=== PATIENT | male | born 1965 | race Caucasian/White ===

== ENCOUNTER 2016-10-24 21:07 | Emergency (ER) | payer OTHER ==
[2016-10-24 21:32] LABS: HEMOGLOBIN 14.7 gm/dl (14.0-17.5); RED BLOOD COUNT 4.54 M/UL (4.20-5.50); WHITE BLOOD COUNT 8.6 K/UL (4.5-11.0)
[2016-10-24 21:52] LABS: BUN/CREATININE RATIO 12 (0-10)
== END 2016-10-24 22:56 | disposition home or self-care (01) ==
LOC: ER1 21:07
PROVIDERS: Specialist/Technologist Athletic Trainer
DX: J44.0 Chronic obstructive pulmonary disease with (acute) lower respiratory infection (principal); J20.9 Acute bronchitis, unspecified; J44.1 Chronic obstructive pulmonary disease with (acute) exacerbation; F17.200 Nicotine dependence, unspecified, uncomplicated
CPT/HCPCS: 36415; 36600; 71010; 80053; 80307; 82803; 85025; 85610; 85730; 93005; 94640; 94664; 96374; 99285; G0480; J2930

== ENCOUNTER → 2016-11-20 | Outpatient (CLI) | payer OTHER ==
[2016-11-20 10:52] LABS: HEMOGLOBIN 15.3 gm/dl (14.0-17.5); RED BLOOD COUNT 4.79 M/UL (4.20-5.50)
[2016-11-20 11:14] LABS: BUN/CREATININE RATIO 14 (0-10)
== END ==
LOC: US 09:09
PROVIDERS: Nurse Practitioner
DX: B18.2 Chronic viral hepatitis C (principal); R93.2 Abnormal findings on diagnostic imaging of liver and biliary tract
CPT/HCPCS: 36415; 76700; 80053; 80074; 80307; 82103; 82105; 82172; 82247; 82390; 82728; 82977; 83010; 83540; 83550; 83883; 84460; 85027; 85610; 86039; 86235; 86255; 87390; 87521; G0480

== ENCOUNTER → 2016-12-18 | Outpatient (CLI) | payer OTHER | LOC: SLEEP 21:30 | DX: G47.33 Obstructive sleep apnea (adult) (pediatric) (principal); J41.0 Simple chronic bronchitis | CPT/HCPCS: 95810 ==

== ENCOUNTER 2021-08-10 18:10 | Emergency (ER) | payer OTHER ==
[~2021-08-10 18:10] MED LIST: IBUPROFEN600 MG PO; TAMIFLU75 MG PO
[2021-08-10 20:09] LABS: HEMOGLOBIN 14.3 gm/dl (14.0-17.5); RED BLOOD COUNT 4.43 M/UL (4.20-5.50); WHITE BLOOD COUNT 7.1 K/UL (4.5-11.0)
[2021-08-10 20:27] LABS: BUN/CREATININE RATIO 8 (0-10)
== END 2021-08-10 20:48 | disposition left against medical advice (07) ==
LOC: ER1 18:10
PROVIDERS: Family Medicine
DX: U07.1 COVID-19 (principal); J44.9 Chronic obstructive pulmonary disease, unspecified; F17.200 Nicotine dependence, unspecified, uncomplicated; R06.00 Dyspnea, unspecified; F10.10 Alcohol abuse, uncomplicated; Z20.822 Contact with and (suspected) exposure to COVID-19; Z99.81 Dependence on supplemental oxygen
CPT/HCPCS: 36600; 71045; 80053; 82550; 82553; 82803; 83605; 83735; 83874; 83880; 84484; 85025; 93005; 94664; 94760; 96374; 99283; G0480; J2930; U0002

== ENCOUNTER 2021-08-13 12:40 | Emergency (ER) | payer OTHER ==
[2021-08-13 14:45] LABS: HEMOGLOBIN 15.7 gm/dl (14.0-17.5)
[2021-08-13 14:50] LABS: RED BLOOD COUNT 4.94 M/UL (4.20-5.50); WHITE BLOOD COUNT 15.9 K/UL (4.5-11.0)
[2021-08-13 15:12] LABS: BUN/CREATININE RATIO 19 (0-10)
== END 2021-08-13 19:25 | disposition left against medical advice (07) ==
LOC: ER1 12:40
PROVIDERS: Physician Assistant
DX: U07.1 COVID-19 (principal); F17.200 Nicotine dependence, unspecified, uncomplicated; E78.5 Hyperlipidemia, unspecified; J44.9 Chronic obstructive pulmonary disease, unspecified; I10 Essential (primary) hypertension
CPT/HCPCS: 71045; 80053; 82550; 82553; 83874; 84484; 85025; 93005; 99283